=== PATIENT | female | born 1940 | race Caucasian/White ===

== ENCOUNTER 2023-05-07 13:01 | Outpatient (CLI) | payer MEDICARE, SELFPAY | END 2023-05-07 13:02 | disposition home or self-care (01) | PROVIDERS: PCP Family Medicine; Visit Provider Physician Assistant | DX: C34.90 Malignant neoplasm of unspecified part of unspecified bronchus or lung (principal); C79.31 Secondary malignant neoplasm of brain | CPT/HCPCS: 70553; A9575 ==

== ENCOUNTER 2023-06-02 13:28 | Emergency (ER) | payer MEDICARE, SELFPAY ==
[2023-06-02] VITALS (13 sets, daily range): BP systolic 112–148; BP diastolic 63–74; PULSE 76–100; RESP 24; TEMP 36.5; O2SAT 95–96; BMI 19.3
--- NOTE | 2023-06-02 13:47 | ED.GENADULT ---
HPI - General Adult General Chief complaint: Shortness of Breath/Dyspnea Stated complaint: Diff breathing, dehyd, cant eat, cancer pt Time Seen by Provider: 06/02/23 13:47 History of Present Illness HPI narrative: Patient presents to the emergency department complaining of shortness of breath. Patient has a plurex drain under left arm which was place . Patient finished cancer radiation on . Patient also states she has had increased thirst 82-year-old woman presenting to the emergency department with concern of increasing shortness of breath over last 24 hours. Does have a PleurX drain placed 05/14/2023 for recurrent pleural effusions. Had some surgical intervention prior to that. Underlying history of lung cancer with metastases to the brain. Had been doing well for a couple of years following chemotherapy and now with brain metastases and recurrent pleural effusion. She has been receiving radiation to her brain. Has not had a fever. She feels particularly fatigued. Also very thirsty. Has been drained of pleural fluid about 150 mL 3 times this last week; this would not be atypical. Apparently this drainage is painful. Related Data Previous Rx's Medication Instructions Recorded nirmatrelvir 150 mg-ritonavir 100 See Rx Instructions PO .COMPLEX 06/02/23 mg tablets in a dose pack #20 ea (Paxlovid) Allergies Allergy/AdvReac Type Severity Reaction Status Date / Time No Known Drug Allergies Allergy Verified 06/02/23 15:03 Review of Systems Status of ROS: Reports: 6 or more systems reviewed and unremarkable except as noted in History and below [facility] Social History Smoking Status: Never smoker Do you use any of these nicotine containing products: None Second hand tobacco smoke exposure: No How often do you have a drink containing alcohol: never AUDIT-C Alcohol total score: 0 Non-prescribed substance use: denies use service: No Exam Narrative: Exam Narrative: Pleasant. Hard of hearing. Appears fatigued. Mildly labored and mildly tachypneic. Answers questions easily though when speak louder. Seems uncomfortable, distracted. Oropharynx is quite dry. No evidence of thrush. Lungs with diminished breath sounds superiorly. No supraclavicular crepitus. Good breath sounds of lower lung marvin without crepitus. Heart in elevated to tachycardic rate in a regular rhythm. Abdomen is soft and nontender. Extremities well perfused without edema. Const: Vital Signs, click to edit/add: Vital Signs - 24 hr 06/02/23 13:33 06/02/23 14:54 06/02/23 15:00 Temperature 97.7 F Pulse Rate 76 78 Pulse Rate [Right Pulse Oximeter] 100 Respiratory Rate 24 Blood Pressure Blood Pressure [Ri ght Upper Arm] 112/65 Pulse Oximetry 95 95 95 Oxygen Delivery Me thod Room Air 06/02/23 15:01 06/02/23 15:30 06/02/23 15:32 Temperature Pulse Rate 77 78 78 Pulse Rate [Right Pulse Oximeter] Respiratory Rate Blood Pressure 139/67 138/63 Blood Pressure [Ri ght Upper Arm] Pulse Oximetry 96 96 95 Oxygen Delivery Me thod 06/02/23 15:33 06/02/23 16:00 06/02/23 16:02 Temperature Pulse Rate 86 80 79 Pulse Rate [Right Pulse Oximeter] Respiratory Rate Blood Pressure 148/70 H Blood Pressure [Ri ght Upper Arm] Pulse Oximetry 96 95 95 Oxygen Delivery Me thod 06/02/23 16:30 06/02/23 16:32 06/02/23 17:00 Temperature Pulse Rate 81 80 80 Pulse Rate [Right Pulse Oximeter] Respiratory Rate Blood Pressure 146/74 H Blood Pressure [Ri ght Upper Arm] Pulse Oximetry 96 96 96 Oxygen Delivery Me thod 06/02/23 17:02 Temperature Pulse Rate 81 Pulse Rate [Right Pulse Oximeter] Respiratory Rate Blood Pressure 146/72 H Blood Pressure [Ri ght Upper Arm] Pulse Oximetry 95 Oxygen Delivery Me thod Documenting provider has reviewed patient's vital signs: yes Course Vital Signs Vital signs: Initial Vital Signs Temperature 97.7 F 06/02/23 13:33 Temperature Source Temporal Artery Scan 06/02/23 13:33 Pulse Rate 100 06/02/23 13:33 Pulse Rhythm Regular 06/02/23 13:33 Pulse Strength 3+ Normal 06/02/23 13:33 Respiratory Rate 24 06/02/23 13:33 Blood Pressure 112/65 06/02/23 13:33 Blood Pressure Mean 80 06/02/23 13:33 Blood Pressure Position Sitting 06/02/23 13:33 Pulse Oximetry 95 06/02/23 13:33 Oxygen Delivery Method Room Air 06/02/23 13:33 Vital Signs Temperature 97.7 F 06/02/23 13:33 Pulse Rate 100 06/02/23 13:33 Respiratory Rate 24 06/02/23 13:33 Blood Pressure 112/65 06/02/23 13:33 Pulse Oximetry 95 06/02/23 13:33 Oxygen Delivery Method Room Air 06/02/23 13:33 Temperature 97.7 F 06/02/23 13:33 Pulse Rate 81 06/02/23 17:02 Respiratory Rate 24 06/02/23 13:33 Blood Pressure 146/72 H 06/02/23 17:02 Pulse Oximetry 95 06/02/23 17:02 Oxygen Delivery Method Room Air 06/02/23 13:33 Medications Administered Medications: Discontinued Medications Generic Name Dose Route Start Last Admin Trade Name Freq PRN Reason Stop Dose Admin Sodium Chloride 1,000 mls @ 1,000 mls/hr 06/02/23 14:06 06/02/23 15:35 0.9 % Sodium Chloride 1000 Ml IV 06/02/23 15:05 Infused .Q1H ONE Infusion Medical Decision Making MDM Narrative Medical decision making narrative: Certainly could be rapid accumulation of this pleural effusion. May have a pneumothorax or possibly pneumonia. With further sources of infection as well. Does not meet sepsis criteria at this point. Influenza remains in differential as does pulmonary embolus. More significant dehydration could contribute to this sense of dyspnea. She is satting 95% on room air. Heart failure possibly as well Chest x-ray reviewed by me looks to show some diffuse congestion in the lungs and small to moderate left-sided pleural effusion. Drain noted. Radiology over-read as below Study:?XRay-Chest PORTABLE-06/02/2023 2:21:35 PM Ordering Physician:MARTINEZ Final Report: Indication: History of pleural effusion, increased dyspnea Technique: Single frontal view of the chest Comparison: None Findings/impression : No cardiomegaly. Mild pulmonary vascular congestion. Small to moderate left-sided pleural effusion with chest tube coiled over the left lower lung zone. Faint diffuse airspace opacities involving predominantly the right mid to lower lung zone, may represent pulmonary edema versus an acute infectious/inflammatory process in the appropriate clinical context. No displaced fractures. White count was noted with some lymphocytic suppression. Ultimately was positive for COVID. I think this is most consistent with presentation. Following 1 L of fluid resuscitation clearly has much more energy. Is engaged. Is anxious to leave the emergency department. No longer tachycardic. Oxygenating still at 95% on room. Will be ordering for Paxlovid. Did ask pharmacy to run medications for interactions. Dosing will be adjusted for renal function. Apparently recently had a creatinine of 2 according to her . GFR is just under 30 and she might not be recommended for Paxlovid at all but I think in this patient it would be more important to treat for COVID. Did discuss this case with [facility] as requested by patient and Oncology. See patient discharge plan for further discussion Lab Data Lab results reviewed: Yes I reviewed the patient's lab results Labs: Lab Results 06/02/23 06/02/23 06/02/23 Range/Units 14:00 14:07 14:28 WBC 6.49 (4.50-11.00) K/uL RBC 4.17 (4.00-5.20) m/uL Hgb 11.9 L (12.0-16.0) gm/dL Hct 37.6 (33.0-51.0) % MCV 90 (80-100) fL MCH 29 (26-34) pg MCHC 32 (32-36) gm/dL RDW Coeff of David 16.8 H (11.5-15.5) % Plt Count 215 (140-440) K/uL Neut % (Auto) 81.0 H (42.0-72.0) % Lymph % (Auto) 11.4 L (20-44) % [place] % (Auto) 5.9 (0.0-11.0) % Eos % (Auto) 0.9 (0.0-7.0) % Baso % (Auto) 0.5 (0.0-3.0) % Neut # (Auto) 5.30 (1.7-7.0) K/uL Lymph # (Auto) 0.70 L (0.90-2.90) K/uL [place] # (Auto) 0.40 (0.00-0.90) K/UL Eos # (Auto) 0.06 (0.00-0.50) K/uL Baso # (Auto) 0.03 (0.00-0.30) K/uL Abs Immat Gran (auto) 0.02 (0.00-0.30) K/uL Imm/Tot Granulo (auto) 0.3 % Sodium 140 (135-149) mmol/L Potassium 3.6 (3.6-5.1) mmol/L Chloride 113 (96-114) mmol/L Carbon Dioxide 21 (20-32) mmol/L Anion Gap 6 L (7-15) mEq/L BUN 44 H (7-30) mg/dL Creatinine 1.3 (0.5-1.5) mg/dL Estimated Creat Clear 29.39 Estimated GFR 41 ml/min Glucose 152 H (60-115) mg/dL Lactate 1.5 (0.5-1.9) mmol/L Calcium 9.3 (8.4-10.6) mg/dL Magnesium 2.3 (1.5-2.6) mg/dL Total Bilirubin 0.5 (0.1-1.5) mg/dL Direct Bilirubin 0.5 (0.0-0.5) mg/dL AST 29 (12-35) U/L ALT 15 (4-35) U/L Alkaline Phosphatase 90 (40-150) U/L Troponin I < 0.01 L (0.01-0.04) ng/mL C-Reactive Protein 0.9 (0.5-1.0) mg/dL NT-Pro-B Natriuret Pep 798 pg/mL Total Protein 6.4 (6.0-8.3) g/dL Albumin 3.4 (3.3-5.0) g/dL Procalcitonin 0.09 (<0.50) ng/mL SARS-CoV-2 (PCR) POSITIVE SARS-CoV-2 A (Negative) Influenza Type A (PCR) Negative PCR FLU A (Negative) Influenza Type B (PCR) Negative PCR FLU B (Negative) RSV (PCR) Negative PCR RSV (Negative) Lab Acknowledgement POC Troponin I 0.01 (0.01-0.04) ng/ml 06/02/23 Range/Units 16:53 WBC (4.50-11.00) K/uL RBC (4.00-5.20) m/uL Hgb (12.0-16.0) gm/dL Hct (33.0-51.0) % MCV (80-100) fL MCH (26-34) pg MCHC (32-36) gm/dL RDW Coeff of David (11.5-15.5) % Plt Count (140-440) K/uL Neut % (Auto) (42.0-72.0) % Lymph % (Auto) (20-44) % [place] % (Auto) (0.0-11.0) % Eos % (Auto) (0.0-7.0) % Baso % (Auto) (0.0-3.0) % Neut # (Auto) (1.7-7.0) K/uL Lymph # (Auto) (0.90-2.90) K/uL [place] # (Auto) (0.00-0.90) K/UL Eos # (Auto) (0.00-0.50) K/uL Baso # (Auto) (0.00-0.30) K/uL Abs Immat Gran (auto) (0.00-0.30) K/uL Imm/Tot Granulo (auto) % Sodium (135-149) mmol/L Potassium (3.6-5.1) mmol/L Chloride (96-114) mmol/L Carbon Dioxide (20-32) mmol/L Anion Gap (7-15) mEq/L BUN (7-30) mg/dL Creatinine (0.5-1.5) mg/dL Estimated Creat Clear Estimated GFR ml/min Glucose (60-115) mg/dL Lactate (0.5-1.9) mmol/L Calcium (8.4-10.6) mg/dL Magnesium (1.5-2.6) mg/dL Total Bilirubin (0.1-1.5) mg/dL Direct Bilirubin (0.0-0.5) mg/dL AST (12-35) U/L ALT (4-35) U/L Alkaline Phosphatase (40-150) U/L Troponin I (0.01-0.04) ng/mL C-Reactive Protein (0.5-1.0) mg/dL NT-Pro-B Natriuret Pep pg/mL Total Protein (6.0-8.3) g/dL Albumin (3.3-5.0) g/dL Procalcitonin (<0.50) ng/mL SARS-CoV-2 (PCR) (Negative) Influenza Type A (PCR) (Negative) Influenza Type B (PCR) (Negative) RSV (PCR) (Negative) Lab Acknowledgement Test Added POC Troponin I (0.01-0.04) ng/ml ECG Data Attestation: I personally reviewed and interpreted this ECG as follows: (Normal sinus rhythm at a rate of 83. Without acute ischemic changes) Discharge Plan Discharge Clinical Impression: COVID-19, Pleural effusion, Dehydration Patient Disposition: Home w/ Parent or Adult Condition: Improved Additional Instructions: Do focus on hydration. Might want to supplement with electrolyte drinks like reconstituted Powerade or Gatorade. Paxlovid sent to [facility] pharmacy. Continue to take your Eliquis as dosed. Hold atorvastatin for 8 days Wait on starting your Gefitinib. I think you should be able to wait until scheduled fluid removal on Friday. If you are finding yourself increasingly short of breath, check oxygen saturation and if persistently 90% or less, would return for evaluation. Of course be seen for fever. Since your kidneys have been under stress lately, I did decrease your dosing of Paxlovid a little bit. I would follow up in about 8-10 days to recheck your kidney function Prescriptions: New Paxlovid 150-100 mg tablets,dose pack See Rx Instructions .ROUTE .COMPLEX Qty: 20 0RF Rx Instructions: orally per package directions Follow Up/Referrals: ANGELLA GUTIERREZ [Primary Care Provider] - Stand Alone Forms: OrderWithMe Info Instructions
--- NOTE | 2023-06-02 14:06 | XR_ITS ---
Patient: JAQUI COLORADO Facility:?[facility] Patient ID:?[id number] Site Patient ID:?[id number]. Site :?[id number] Study:?XRay-Chest PORTABLE-06/02/2023 2:21:35 PM Ordering Physician:MARTINEZ Final Report: Indication: History of pleural effusion, increased dyspnea Technique: Single frontal view of the chest Comparison: None Findings/impression : No cardiomegaly. Mild pulmonary vascular congestion. Small to moderate left-sided pleural effusion with chest tube coiled over the left lower lung zone. Faint diffuse airspace opacities involving predominantly the right mid to lower lung zone, may represent pulmonary edema versus an acute infectious/inflammatory process in the appropriate clinical context. No displaced fractures. Dictated by Dewayne Simmons MD @ 06/02/2023 2:42:04 PM Signed by:?Dewayne Simmons MD @06/02/2023 2:42:04 PM
[2023-06-02] MEDS: 0.9 % SODIUM CHLORIDE 1000 ml 1,000 ML IV (14:32)
[2023-06-02 14:37] LABS: Lactate* 1.5 mmol/L (0.5-1.9)
[2023-06-02 14:46] LABS: Troponin, Point-of-Care* 0.01 ng/ml (0.01-0.04)
[2023-06-02 14:47] LABS: Eosinophils Percent Auto 0.9 % (0.0-7.0); Hematocrit 37.6 % (33.0-51.0); Hemoglobin* 11.9 gm/dL (12.0-16.0); Lymphocytes Percent Auto 11.4 % (20-44); Mean Corpuscular HGB Conc 32 gm/dL (32-36); Mean Corpuscular Hemoglobin 29 pg (26-34); Mean Corpuscular Volume 90 fL (80-100); Monocytes Percent Auto 5.9 % (0.0-11.0); Platelet Count* 215 K/uL (140-440); RDW Coefficient of Variation % 16.8 % (11.5-15.5); Red Blood Count 4.17 m/uL (4.00-5.20); White Blood Count* 6.49 K/uL (4.50-11.00)
[2023-06-02 14:48] LABS: Basophils Absolute Auto 0.03 K/uL (0.00-0.30); Basophils Percent Auto 0.5 % (0.0-3.0); Eosinophils Absolute Auto 0.06 K/uL (0.00-0.50); Immature Granulocytes Abs Auto 0.02 K/uL (0.00-0.30); Immature Granulocytes Pct Auto 0.3 %
[2023-06-02 14:49] LABS: Slide Review Reflex No
[2023-06-02 14:49] LABS: PCR FLU A Negative PCR FLU A (Negative); PCR FLU B Negative PCR FLU B (Negative); PCR RSV Negative PCR RSV (Negative); SARS PCR* POSITIVE SARS-CoV-2 (Negative)
[2023-06-02 14:56] LABS: Chloride* 113 mmol/L (96-114); Potassium* 3.6 mmol/L (3.6-5.1); Sodium* 140 mmol/L (135-149)
[2023-06-02 14:58] LABS: Creatinine* 1.3 mg/dL (0.5-1.5); Est. Creatinine Clearance* 29.39; Estimated Glomerular Filt Rate 41 ml/min
[2023-06-02 14:59] LABS: Anion Gap 6 mEq/L (7-15); Blood Urea Nitrogen* 44 mg/dL (7-30); Carbon Dioxide* 21 mmol/L (20-32)
[2023-06-02 15:00] LABS: Calcium* 9.3 mg/dL (8.4-10.6); Glucose* 152 mg/dL (60-115); Magnesium* 2.3 mg/dL (1.5-2.6)
[2023-06-02 15:02] LABS: C Reactive Protein* 0.9 mg/dL (0.5-1.0)
[2023-06-02 15:17] LABS: Procalcitonin* 0.09 ng/mL (<0.50)
[2023-06-02 15:26] LABS: NT Pro B Type NatriureticPept* 798 pg/mL; Troponin I* < 0.01 ng/mL (0.01-0.04)
[2023-06-02 17:05] LABS: Albumin* 3.4 g/dL (3.3-5.0)
[2023-06-02 17:08] LABS: Alanine Aminotransferase* 15 U/L (4-35); Alkaline Phosphatase* 90 U/L (40-150); Aspartate Amino Transferase* 29 U/L (12-35); Bilirubin Direct* 0.5 mg/dL (0.0-0.5); Bilirubin Total* 0.5 mg/dL (0.1-1.5); Total Protein* 6.4 g/dL (6.0-8.3)
== END 2023-06-02 18:07 | disposition home or self-care (01) ==
PROVIDERS: Emergency Provider Family Medicine; PCP Family Medicine
DX: U07.1 COVID-19 (principal); J90 Pleural effusion, not elsewhere classified
CPT/HCPCS: 36415; 71045; 80048; 80076; 81001; 83605; 83735; 83880; 84145; 84484; 85025; 86140; 87040; 87631; 93005; 99284; J7030

== ENCOUNTER 2023-06-07 14:48 | Emergency (ER) | payer MEDICARE, SELFPAY ==
[2023-06-07 15:00] VITALS: BP 109/60; PULSE 99; RESP 18; TEMP 36.8; O2SAT 96; BMI 18.8
--- NOTE | 2023-06-07 15:19 | ED_ITS ---
HPI - Weakness General Time Seen by Provider: 15:19 Date Seen: 06/07/23 Chief complaint: Weakness Stated complaint: weakness, trouble walking Time Seen by Provider: 06/07/23 15:10 Source: patient and RN notes reviewed Mode of arrival: ambulatory Limitations: no limitations History of Present Illness HPI Narrative: This 82-year-old female is ambulatory into the ER accompanied by her significant other. They are concerned about increasing weakness in the setting of COVID. She is not really eating or drinking, complaining of nausea. She has had some recent emesis after attempting to drink. She denies any current fevers or chills, no abdominal pain. She does have underlying lung cancer with brain metastases, did have brain radiation on May 26 per report. She also has stage 4 kidney disease. She was initiated on Paxlovid on June 01 for COVID. She only has 1 dose of pills left to take. She does have a drainage catheter in the left pleural space for recurrent pleural effusion. She is feeling increasingly short of breath and weak. They note her O2 sats were 95% at home but when they got her up to ambulate, she went down to 84%. She denies any active chest pain. She has been getting some pinching sensation from the catheter in the left chest wall, there is no new chest symptoms however as far as pain. They are wondering if she is going to get some IV fluids. She is anticoagulated with Eliquis. MD Complaint: generalized weakness Related Data Home Medications Medication Instructions Recorded Confirmed apixaban 2.5 mg tablet (Eliquis) 2.5 mg PO BID 06/07/23 06/07/23 gabapentin 100 mg capsule 100 mg PO QPM 06/07/23 06/07/23 levothyroxine 50 mcg tablet 50 mcg PO DAILY 06/07/23 06/07/23 losartan 25 mg tablet 25 mg PO DAILY 06/07/23 06/07/23 memantine 10 mg tablet mg 06/07/23 sertraline 100 mg tablet 100 mg PO DAILY 06/07/23 06/07/23 Previous Rx's Medication Instructions Recorded nirmatrelvir 150 mg-ritonavir 100 See Rx Instructions PO .COMPLEX 06/02/23 mg tablets in a dose pack #20 ea (Paxlovid) Allergies Allergy/AdvReac Type Severity Reaction Status Date / Time lisinopril Allergy Verified 06/07/23 15:06 Review of Systems Status of ROS: Reports: 6 or more systems reviewed and unremarkable except as noted in History and below [facility] Social History Smoking Status: Never smoker Do you use any of these nicotine containing products: None Second hand tobacco smoke exposure: No How often do you have a drink containing alcohol: never AUDIT-C Alcohol total score: 0 Non-prescribed substance use: denies use service: No Exam Const: Vital Signs, click to edit/add: Vital Signs - 24 hr 06/07/23 15:00 06/07/23 15:29 06/07/23 16:20 Temperature 98.2 F Pulse Rate [Right Pulse Oximeter] 99 86 Respiratory Rate 18 Blood Pressure [Ri ght Upper Arm] 109/60 117/67 Pulse Oximetry 96 97 97 Oxygen Delivery Me thod Room Air Room Air 82-year-old female is alert come interac tive, sitting the bed and exam room to. She is hard of hearing. Sclera clear, pupils are equal round, conjugate gaze. Symmetrical facial function. IA do see a good waveform as I put her on pulse oximetry when I am in with her, 97% at rest. I did ambulate her on the pulse oximeter within her room, maybe just about 20 ft, her oximeter still has excellent reading and she does not become hypoxic for me but she is excessively tachypneic. Cannot even speak she becomes so tachypneic. Baseline, lungs are clear, maybe diminished breath sounds left base but overall hear no wheezing or crackles. CV slightly fast but regular, no murmur, normal S1-S2, no S3-S4. Left pleural catheter in place, bandaging appears clean and dry. Abdomen is soft, no rebound or guarding, do not appreciate any masses. She has no lower extremity edema. She is able to get up off the bed with my assistance but does ambulate slowly on her own in the room. Documenting provider has reviewed patient's vital signs: yes Course Course ED Course: This 82-year-old female is complaining of increasing shortness of breath in set ting of COVID, lung cancer, chronic anticoagulation with apixaban. This could be multifactorial with post oral effusion, infectious changes from COVID-19. Will get EKG and troponin to consider cardiac manifestations. Will also recheck her electrolytes. She does have stage 4 chronic kidney disease and has been on Paxlovid. Will give her small fluid bolus of 500 mL. It is doubtful that this is thromboembolic disease given her chronic anticoagulation. She is not currently hypoxic. Will have to see what her labs and chest x-ray show. If they do not feel that she is safe for able to return home, may need to discuss this further. Reevaluation(s) Time of Reevaluation #1: 16:58 Reevaluation #1: Have reviewed with patient and her significant other that the labs are reassuring, chest x-ray showing no evidence of any concerning change. We will give a full L of IV fluids. We did discuss that the pulse oximeter that they have at home, there is no waveform on it. We did review that sometimes there can be difficulty assessing the accuracy without being able to see a waveform. We will ambulate her after she is done with her fluids with our pulse oximeter with a waveform to ensure stability. I do not doubt with her lung cancer, pleural effusion and current COVID that she might be feeling short of breath but she is not becoming hypoxic. At this current time, have no clear indication for hospitalization. We did review that her COVID antigen is negative at this time. Time of Reevaluation #2: 18:53 Reevaluation #2: Nursing staff ambulated patient in the room, oximetry actually went up to 98, 99%. Patient was able to ambulate on her own. She has completed her fluids. We did discuss that she certainly is more tachypneic with activity but is not becoming hypoxic. They wondered about home oxygen, reviewed with them that it would absolutely not be paid for, she does not qualify for it. She has to be hypoxic. We discussed slowly increasing her activity, rest when she is feeling short of breath. Idea should be relative rest, work for goal of slowly increasing slow walks daily, do short small intervals multiple times a day. Again, when she starts feeling short of breath, she should slow down and rest and recover. We discussed signs and symptoms for worsening, did discuss rebound after treatment for COVID. She has her significant other who will be readily available to help her at home. Vital Signs Vital signs: Initial Vital Signs Temperature 98.2 F 06/07/23 15:00 Temperature Source Temporal Artery Scan 06/07/23 15:00 Pulse Rate 99 06/07/23 15:00 Respiratory Rate 18 06/07/23 15:00 Blood Pressure 109/60 06/07/23 15:00 Blood Pressure Mean 76 06/07/23 15:00 Blood Pressure Position Sitting 06/07/23 15:00 Pulse Oximetry 96 06/07/23 15:00 Oxygen Delivery Method Room Air 06/07/23 15:00 Vital Signs Temperature 98.2 F 06/07/23 15:00 Pulse Rate 99 06/07/23 15:00 Respiratory Rate 18 06/07/23 15:00 Blood Pressure 109/60 06/07/23 15:00 Pulse Oximetry 96 06/07/23 15:00 Oxygen Delivery Method Room Air 06/07/23 15:00 Temperature 98.2 F 06/07/23 15:00 Pulse Rate 86 06/07/23 16:20 Respiratory Rate 18 06/07/23 15:00 Blood Pressure 117/67 06/07/23 16:20 Pulse Oximetry 97 06/07/23 16:20 Oxygen Delivery Method Room Air 06/07/23 16:20 Medications Administered Medications: Discontinued Medications Generic Name Dose Route Start Last Admin Trade Name Freq PRN Reason Stop Dose Admin Sodium Chloride 500 mls @ 500 mls/hr 06/07/23 15:29 06/07/23 16:15 0.9 % Sodium Chloride 500 Ml IV 06/07/23 16:28 500 mls/hr .Q1H ONE Administration Sodium Chloride 500 mls @ 500 mls/hr 06/07/23 17:05 06/07/23 17:16 0.9 % Sodium Chloride 500 Ml IV 06/07/23 18:04 500 mls/hr .Q1H ONE Administration MDM - Weakness Lab Data Attestation: I reviewed the patient's lab results. Labs: Lab Results 06/07/23 Range/Units 15:49 WBC 6.00 (4.50-11.00) K/uL RBC 3.78 L (4.00-5.20) m/uL Hgb 10.9 L (12.0-16.0) gm/dL Hct 33.8 (33.0-51.0) % MCV 89 (80-100) fL MCH 29 (26-34) pg MCHC 32 (32-36) gm/dL RDW Coeff of David 17.0 H (11.5-15.5) % Plt Count 192 (140-440) K/uL Neut % (Auto) 76.3 H (42.0-72.0) % Lymph % (Auto) 15.5 L (20-44) % [place] % (Auto) 7.2 (0.0-11.0) % Eos % (Auto) 0.8 (0.0-7.0) % Baso % (Auto) 0.2 (0.0-3.0) % Neut # (Auto) 4.60 (1.7-7.0) K/uL Lymph # (Auto) 0.90 (0.90-2.90) K/uL [place] # (Auto) 0.40 (0.00-0.90) K/UL Eos # (Auto) 0.05 (0.00-0.50) K/uL Baso # (Auto) 0.01 (0.00-0.30) K/uL Abs Immat Gran (auto) 0.00 (0.00-0.30) K/uL Imm/Tot Granulo (auto) 0.0 % VBG pH 7.399 (7.32-7.43) VBG pCO2 38 L (40-50) mmHG VBG pO2 44.5 (25-47) mmHG VBG HCO3 23 (21-28) mmol/L Sodium 138 (135-149) mmol/L Potassium 3.7 (3.6-5.1) mmol/L Chloride 111 (96-114) mmol/L Carbon Dioxide 21 (20-32) mmol/L Anion Gap 6 L (7-15) mEq/L BUN 31 H (7-30) mg/dL Creatinine 1.3 (0.5-1.5) mg/dL Estimated Creat Clear 28.67 Estimated GFR 41 ml/min Glucose 117 H (60-115) mg/dL Lactate 1.2 (0.5-1.9) mmol/L Calcium 9.1 (8.4-10.6) mg/dL Total Bilirubin 0.3 (0.1-1.5) mg/dL AST 24 (12-35) U/L ALT 12 (4-35) U/L Alkaline Phosphatase 83 (40-150) U/L Troponin I < 0.01 L (0.01-0.04) ng/mL C-Reactive Protein 2.0 H (0.5-1.0) mg/dL Total Protein 5.4 L (6.0-8.3) g/dL Albumin 3.1 L (3.3-5.0) g/dL SARS-CoV-2 Ag (Rapid) Negative (Negative) Imaging Data Chest x-ray: Attestation: I have reviewed the pertinent imaging results. Radiologist's impression: Patient: JAQUI COLORADO Facility:?[facility] Patient ID:?[id number] Site Patient ID:?[id number]. Site :?[id number] Study:?XRay Chest -06/07/2023 4:09:44 PM Ordering Physician:ERROL MERCADO Final Report: INDICATION: Worsening shortness of breath, history of lung cancer, covid. TECHNIQUE: Chest 1 view. COMPARISON: Chest x-ray 06/02/2023 FINDINGS: The heart is normal in size. The pulmonary vasculature is within normal limits. Stable right-sided interstitial opacities. Persistent left pleural effusion with catheter in place. Bones are unremarkable. Postsurgical changes of the left lung. IMPRESSION: Stable chest. Dictated by Shantell Jaimes MD @ 06/07/2023 4:33:18 PM Dictated by: Shantell Jaimes MD @ 06/07/2023 16:34:47 (Electronic Signature) ECG Data Attestation: I personally reviewed and interpreted this ECG as follows: (Normal sinus rhythm, 82 beats per minute. No infarct or ischemic change noted. QT cor rected 467 milliseconds.) ECG interpretation date: 06/07/23 ECG interpretation time: 16:57 Discharge Plan Discharge Clinical Impression: COVID-19, Weakness Patient Disposition: Home, Self-Care Condition: Stable Instructions: COVID-19 (Coronavirus Disease 2019) (ED), How to Recover from COVID-19 at Home (ED) Additional Instructions: Do slow small walks, short walks, rest and recover when you are feeling short of breath. Try to slowly increase her activity level over time. Complete the Paxlovid. Continue to follow up with Oncology. Review handout, if you have further concerns or feel you are worsening, please seek re-evaluation. Activity Level: Activity as Tolerated Discharge Diet: Regular Prescriptions: No Action Paxlovid 150-100 mg tablets,dose pack See Rx Instructions .ROUTE .COMPLEX Qty: 20 0RF Rx Instructions: orally per package directions sertraline 100 mg tablet 100 mg PO DAILY levothyroxine 50 mcg tablet 50 mcg PO DAILY losartan 25 mg tablet 25 mg PO DAILY gabapentin 100 mg capsule 100 mg PO QPM Eliquis 2.5 mg tablet 2.5 mg PO BID memantine 10 mg tablet Patient Comments: PLEASE SEE ATTACHED FOR DETAILED DIRECTIONS Follow Up/Referrals: ANGELLA GUTIERREZ [Primary Care Provider] - Stand Alone Forms: enStageth Info Instructions
[2023-06-07 15:29] VITALS: O2SAT 97
--- NOTE | 2023-06-07 15:29 | XR_ITS ---
Patient: JAQUI COLORADO Facility:?[facility] Patient ID:?[id number] Site Patient ID:?[id number]. Site :?[id number] Study:?XRay-Chest -06/07/2023 4:09:44 PM Ordering Physician:ERROL MERCADO Final Report: INDICATION: Worsening shortness of breath, history of lung cancer, covid. TECHNIQUE: Chest 1 view. COMPARISON: Chest x-ray 06/02/2023 FINDINGS: The heart is normal in size. The pulmonary vasculature is within normal limits. Stable right-sided interstitial opacities. Persistent left pleural effusion with catheter in place. Bones are unremarkable. Postsurgical changes of the left lung. IMPRESSION: Stable chest. Dictated by Shantell Jaimes MD @ 06/07/2023 4:33:18 PM Dictated by: Shantell Jaimes MD @ 06/07/2023 16:34:47 Signed by:?Shantell Jaimes MD @06/07/2023 4:34:47 PM (Electronic Signature)
[2023-06-07 15:53] LABS: HCO3 VBG 23 mmol/L (21-28); Lactate* 1.2 mmol/L (0.5-1.9); PCO2 VBG 38 mmHG (40-50); PO2 VBG 44.5 mmHG (25-47); pH VBG 7.399 (7.32-7.43)
[2023-06-07 15:58] LABS: Basophils Absolute Auto 0.01 K/uL (0.00-0.30); Basophils Percent Auto 0.2 % (0.0-3.0); Eosinophils Absolute Auto 0.05 K/uL (0.00-0.50); Eosinophils Percent Auto 0.8 % (0.0-7.0); Hematocrit 33.8 % (33.0-51.0); Hemoglobin* 10.9 gm/dL (12.0-16.0); Lymphocytes Percent Auto 15.5 % (20-44); Mean Corpuscular HGB Conc 32 gm/dL (32-36); Mean Corpuscular Hemoglobin 29 pg (26-34); Mean Corpuscular Volume 89 fL (80-100); Monocytes Percent Auto 7.2 % (0.0-11.0); Neutrophils Percent Auto 76.3 % (42.0-72.0); Platelet Count* 192 K/uL (140-440); Red Blood Count 3.78 m/uL (4.00-5.20)
[2023-06-07 15:59] LABS: Slide Review Reflex No
[2023-06-07 16:11] LABS: SARS Antigen* Negative (Negative)
[2023-06-07 16:12] LABS: Chloride* 111 mmol/L (96-114)
[2023-06-07 16:13] LABS: Albumin* 3.1 g/dL (3.3-5.0); Potassium* 3.7 mmol/L (3.6-5.1); Sodium* 138 mmol/L (135-149)
[2023-06-07] MEDS: 0.9 % SODIUM CHLORIDE 500 ML 500 ML IV ×2 (16:15→17:16)
[2023-06-07 16:16] LABS: Alanine Aminotransferase* 12 U/L (4-35); Alkaline Phosphatase* 83 U/L (40-150); Anion Gap 6 mEq/L (7-15); Aspartate Amino Transferase* 24 U/L (12-35); Bilirubin Total* 0.3 mg/dL (0.1-1.5); Blood Urea Nitrogen* 31 mg/dL (7-30); Calcium* 9.1 mg/dL (8.4-10.6); Carbon Dioxide* 21 mmol/L (20-32); Creatinine* 1.3 mg/dL (0.5-1.5); Est. Creatinine Clearance* 28.67; Estimated Glomerular Filt Rate 41 ml/min; Glucose* 117 mg/dL (60-115); Total Protein* 5.4 g/dL (6.0-8.3)
[2023-06-07 16:20] VITALS: BP 117/67; PULSE 86; O2SAT 97
[2023-06-07 16:28] LABS: Troponin I* < 0.01 ng/mL (0.01-0.04)
[2023-06-07 19:15] VITALS: BP 137/70; PULSE 85; RESP 20; O2SAT 96
== END 2023-06-07 19:30 | disposition home or self-care (01) ==
PROVIDERS: Emergency Provider Family Medicine; PCP Family Medicine
DX: U07.1 COVID-19 (principal); R53.1 Weakness
CPT/HCPCS: 36415; 71045; 80053; 82803; 83605; 84484; 85025; 86140; 87426; 93005; 94761; 99284; 99285; J7030

== ENCOUNTER 2023-07-17 16:47 | Emergency (ER) | payer MEDICARE, SELFPAY ==
[2023-07-17] VITALS (29 sets, daily range): BP systolic 79–148; BP diastolic 51–83; PULSE 71–99; RESP 17; TEMP 36.4; O2SAT 78–100; BMI 18.6
--- NOTE | 2023-07-17 17:25 | XR_ITS ---
Patient: JAQUI COLORADO Facility:?[facility] Patient ID:?[id number] Site Patient ID:?[id number] Site :?[id number] Study:?XRay-Chest 2 VIEW-07/17/2023 6:10:43 PM Ordering Physician:?DR. HARRINGTON Final Report: INDICATION: Chest pain. TECHNIQUE: Chest 2 view(s) COMPARISON: Chest radiograph dated 06/07/2023. FINDINGS: Cardiomediastinal silhouette is partially obscured, no significant cardiomegaly. Stable pulmonary vasculature. Surgical clips at the left superior hilum noted. Persistent opacification of the left lower lung, with streaky opacities. Slight interval decrease in right interstitial opacities. No pneumothorax. Extensive multilevel degenerative changes of the visualized spine. IMPRESSION: 1. Persistent opacification of the left lower lung, increased since prior study, may reflect worsening pleural effusion. Underlying mass/pneumonia not excluded. 2. Streaky opacities in the left mid lung, may reflect atelectasis. 3. Slight interval decrease in right interstitial opacities since prior study. Dictated by Best Mendez MD @ 07/17/2023 7:15:01 PM Signed by:?Best Mendez MD @07/17/2023 7:15:01 PM (Electronic Signature)
[2023-07-17] MEDS: 0.9 % SODIUM CHLORIDE 1000 ml 1,000 ML IV (17:45)
[2023-07-17 17:50] LABS: Basophils Absolute Auto 0.02 K/uL (0.00-0.30); Basophils Percent Auto 0.4 % (0.0-3.0); Hematocrit 33.9 % (33.0-51.0); Hemoglobin* 10.8 gm/dL (12.0-16.0); Immature Granulocytes Abs Auto 0.01 K/uL (0.00-0.30); Immature Granulocytes Pct Auto 0.2 %; Lactate* 1.2 mmol/L (0.5-1.9); Lymphocytes Percent Auto 17.9 % (20-44); Mean Corpuscular HGB Conc 32 gm/dL (32-36); Mean Corpuscular Hemoglobin 30 pg (26-34); Mean Corpuscular Volume 93 fL (80-100); Monocytes Percent Auto 5.2 % (0.0-11.0); Neutrophils Percent Auto 76.3 % (42.0-72.0); Platelet Count* 184 K/uL (140-440); RDW Coefficient of Variation % 16.8 % (11.5-15.5); Red Blood Count 3.64 m/uL (4.00-5.20); White Blood Count* 4.96 K/uL (4.50-11.00)
[2023-07-17 18:00] LABS: Slide Review Reflex No
[2023-07-17 18:08] LABS: Chloride* 109 mmol/L (96-114); Potassium* 3.4 mmol/L (3.6-5.1); Sodium* 137 mmol/L (135-149)
[2023-07-17 18:10] LABS: Creatinine* 1.5 mg/dL (0.5-1.5); Est. Creatinine Clearance* 23.81; Estimated Glomerular Filt Rate 35 ml/min
[2023-07-17 18:11] LABS: Anion Gap 4 mEq/L (7-15); Blood Urea Nitrogen* 42 mg/dL (7-30); Carbon Dioxide* 24 mmol/L (20-32); Glucose* 93 mg/dL (60-115)
[2023-07-17 18:12] LABS: Calcium* 8.3 mg/dL (8.4-10.6)
[2023-07-17 18:28] LABS: Procalcitonin* 0.06 ng/mL (<0.50)
[2023-07-17 18:30] LABS: Fecal Occult Blood* Negative (Negative)
[2023-07-17 18:40] LABS: C Reactive Protein* < 0.5 mg/dL (0.5-1.0)
--- NOTE | 2023-07-17 19:23 | ED_ITS ---
HPI - Weakness General Date Seen: 07/17/23 Chief complaint: Weakness Stated complaint: Shortness of breath, diarrhea Time Seen by Provider: 07/17/23 16:53 Source: patient and family Mode of arrival: ambulatory Limitations: no limitations History of Present Illness HPI Narrative: Pt is a lung cancer pt that receives care at [facility]. Pt states she had been recently constipated and all of a sudden she started having diarrhea and took some Imodium to help her stop the onslaught of stool. Pt states the Imodium helped for a short time and she has been having more diarrhea along with shortness of breath this afternoon. thinks the stool appears dark and brought her in for the dark stool.Patient is a delightful lady who presents here with her , ambulatory for evaluation of some mild shortness of breath, and feelings that she may have constipation. She notes that she feels otherwise okay, the only pain she has in her chest is where they did a removal some fluid, with sounds to be for a pleural effusion on the left side. She denies any swelling of her legs, she denies any fevers chills or sweats, she has no appetite, but she tells me that is normal for her, her is very concerned that she has dark stools and she may be bleeding. Denies any abdominal pain at all. Related Data Home Medications Medication Instructions Recorded Confirmed apixaban 2.5 mg tablet (Eliquis) 2.5 mg PO BID 06/07/23 06/07/23 gabapentin 100 mg capsule 100 mg PO QPM 06/07/23 06/07/23 levothyroxine 50 mcg tablet 50 mcg PO DAILY 06/07/23 06/07/23 losartan 25 mg tablet 25 mg PO DAILY 06/07/23 06/07/23 memantine 10 mg tablet mg 06/07/23 sertraline 100 mg tablet 100 mg PO DAILY 06/07/23 06/07/23 Previous Rx's Medication Instructions Recorded nirmatrelvir 150 mg-ritonavir 100 See Rx Instructions PO .COMPLEX 06/02/23 mg tablets in a dose pack #20 ea (Paxlovid) Allergies Allergy/AdvReac Type Severity Reaction Status Date / Time lisinopril Allergy Verified 06/07/23 15:06 Review of Systems Status of ROS: Reports: 10 or more systems reviewed and unremarkable except as noted in History and below PFSH PFSH Social History Smoking Status: Never smoker Do you use any of these nicotine containing products: None Second hand tobacco smoke exposure: No How often do you have a drink containing alcohol: never How often do you have six or more drinks on one occasion: Never AUDIT-C Alcohol total score: 0 Non-prescribed substance use: denies use service: No Exam Narrative: Exam Narrative: On examination in room 3 she is very slight. But alert oriented a little bit pale looking, her initial BP was very low, I question whether he has this placed exactly right. Follow-up BP's are much improved. Pupils are equal round reactive to light there is some sallow miss, but otherwise normal TMs are normal her neck is supple, very she is thin, air entry is decreased on the left side, percussive dullness is noted, heart sounds are normal, she has good air entry otherwise throughout, with no wheezing crackles noted her abdomen is entirely soft there is no guarding no organomegaly. Bowel sounds are normal she moves all extremities independently and well, with no edema, neurologically intact. Const: Vital Signs, click to edit/add: Vital Signs - 24 hr 07/17/23 16:55 07/17/23 17:24 07/17/23 17:55 Temperature 97.5 F L Pulse Rate 71 Pulse Rate [Right Pulse Oximeter] 99 Respiratory Rate 17 Blood Pressure Blood Pressure [Ri ght Upper Arm] 79/51 L Pulse Oximetry 95 100 100 Oxygen Delivery Me thod Room Air 07/17/23 18:00 07/17/23 18:02 07/17/23 18:11 Temperature Pulse Rate 73 77 Pulse Rate [Right Pulse Oximeter] Respiratory Rate Blood Pressure 115/65 119/59 L Blood Pressure [Ri ght Upper Arm] Pulse Oximetry 96 98 Oxygen Delivery Me thod 07/17/23 18:12 07/17/23 18:15 07/17/23 18:21 Temperature Pulse Rate 75 74 77 Pulse Rate [Right Pulse Oximeter] Respiratory Rate Blood Pressure 133/65 Blood Pressure [Ri ght Upper Arm] Pulse Oximetry 100 92 97 Oxygen Delivery Me thod 07/17/23 18:30 07/17/23 18:32 07/17/23 18:41 Temperature Pulse Rate 78 76 79 Pulse Rate [Right Pulse Oximeter] Respiratory Rate Blood Pressure 139/67 141/66 H Blood Pressure [Ri ght Upper Arm] Pulse Oximetry 100 78 L 96 [facility] 07/17/23 18:47 07/17/23 18:51 07/17/23 19:00 Temperature Pulse Rate 78 81 80 Pulse Rate [Right Pulse Oximeter] Respiratory Rate Blood Pressure 148/83 H Blood Pressure [Ri ght Upper Arm] Pulse Oximetry 100 100 93 Oxygen Delivery [facility] 07/17/23 19:01 07/17/23 19:15 07/17/23 19:30 Temperature Pulse Rate 81 80 79 Pulse Rate [Right Pulse Oximeter] Respiratory Rate Blood Pressure 148/79 H Blood Pressure [Ri ght Upper Arm] Pulse Oximetry 90 93 98 Oxygen Delivery [facility] 07/17/23 19:31 07/17/23 19:45 07/17/23 20:00 Temperature Pulse Rate 83 78 79 Pulse Rate [Right Pulse Oximeter] Respiratory Rate Blood Pressure 137/70 Blood Pressure [Ri ght Upper Arm] Pulse Oximetry 98 100 100 Oxygen Delivery [facility] 07/17/23 20:01 07/17/23 20:15 07/17/23 20:39 Temperature Pulse Rate 80 75 84 Pulse Rate [Right Pulse Oximeter] Respiratory Rate Blood Pressure 134/65 Blood Pressure [Ri ght Upper Arm] Pulse Oximetry 97 100 97 Oxygen Delivery [facility] 07/17/23 20:45 07/17/23 21:00 07/17/23 21:02 Temperature Pulse Rate 78 77 76 Pulse Rate [Right Pulse Oximeter] Respiratory Rate Blood Pressure 104/69 Blood Pressure [Ri ght Upper Arm] Pulse Oximetry 99 98 99 Oxygen Delivery [facility] 07/17/23 21:03 07/17/23 21:15 Temperature Pulse Rate 75 73 Pulse Rate [Right Pulse Oximeter] Respiratory Rate Blood Pressure Blood Pressure [Ri ght Upper Arm] Pulse Oximetry 99 100 Oxygen Delivery [facility] Documenting provider has reviewed patient's vital signs: yes Course Course ED Course: Patient's blood pressure continued to improve here, we gave her a total of only 1 L, she had normal laboratories tests for herself, she has a chronically low hemoglobin, and her lactate was normal. I do not think this is sepsis. I do think she needs to take some more fluids in, with her chemotherapy she just has not been eating. She does have the pleural effusion on the left which sounds like it is a chronic issue and followed by [facility] for this she also has chronic pain on the left secondary to when they tapped her, and put a catheter in there this is been going on for months according to her , and I have no acute or suggestions for them. We ruled out myocardial infarction with a couple troponins and her EKGs have been normal. I think it would be reasonable let her go home and she has admit gaping for this. There is no evidence of bleeding, her Hemoccult was negative there is no blood on my finger no black stools. And her hemoglobin has remained stable. she does have the malignancy which [facility] was following Vital Signs Vital signs: Initial Vital Signs Temperature 97.5 F L 07/17/23 16:55 Temperature Source Temporal Artery Scan 07/17/23 16:55 Pulse Rate 99 07/17/23 16:55 Pulse Rhythm Regular 07/17/23 16:55 Pulse Strength 3+ Normal 07/17/23 16:55 Respiratory Rate 17 07/17/23 16:55 Blood Pressure 79/51 L 07/17/23 16:55 Blood Pressure Mean 60 L 07/17/23 16:55 Blood Pressure Position Sitting 07/17/23 16:55 Pulse Oximetry 95 07/17/23 16:55 Oxygen Delivery Method Room Air 07/17/23 16:55 Vital Signs Temperature 97.5 F L 07/17/23 16:55 Pulse Rate 99 07/17/23 16:55 Respiratory Rate 17 07/17/23 16:55 Blood Pressure 79/51 L 07/17/23 16:55 Pulse Oximetry 95 07/17/23 16:55 Oxygen Delivery Method Room Air 07/17/23 16:55 Temperature 97.5 F L 07/17/23 16:55 Pulse Rate 73 07/17/23 21:15 Respiratory Rate 17 07/17/23 16:55 Blood Pressure 104/69 07/17/23 21:02 Pulse Oximetry 100 07/17/23 21:15 Oxygen Delivery Method Room Air 07/17/23 16:55 Medications Administered Medications: Discontinued Medications Generic Name Dose Route Start Last Admin Trade Name Freq PRN Reason Stop Dose Admin Sodium Chloride 1,000 mls @ 1,000 mls/hr 07/17/23 17:30 07/17/23 18:15 0.9 % Sodium Chloride 1000 Ml IV 07/17/23 18:29 Infused .Q1H SRAVAN Infusion MDM - Weakness MDM Narrative Medical decision making narrative: Life-threatening differential diagnosis considered include stroke, coronary artery disease, pneumonia, and heart failure. Other differential diagnosis include but are not limited to electrolyte imbalances, anemia, medication reactions, and urinary tract infection I did do a rectal exam, that is Hemoccult negative. This is reassuring. There is no stool at all, I will do some labs, and follow-up with her, and we will give her some fluids well were waiting. Medical Records Attestation: I reviewed the patient's medical records. Lab Data Attestation: I reviewed the patient's lab results. Labs: Lab Results 07/17/23 07/17/23 07/17/23 Range/Units 17:25 17:40 18:00 WBC 4.96 (4.50-11.00) K/uL RBC 3.64 L (4.00-5.20) m/uL Hgb 10.8 L (12.0-16.0) gm/dL Hct 33.9 (33.0-51.0) % MCV 93 (80-100) fL MCH 30 (26-34) pg MCHC 32 (32-36) gm/dL RDW Coeff of David 16.8 H (11.5-15.5) % Plt Count 184 (140-440) K/uL Neut % (Auto) 76.3 H (42.0-72.0) % Lymph % (Auto) 17.9 L (20-44) % [place] % (Auto) 5.2 (0.0-11.0) % Eos % (Auto) 0.0 (0.0-7.0) % Baso % (Auto) 0.4 (0.0-3.0) % Neut # (Auto) 3.80 (1.7-7.0) K/uL Lymph # (Auto) 0.90 (0.90-2.90) K/uL [place] # (Auto) 0.30 (0.00-0.90) K/UL Eos # (Auto) 0.00 (0.00-0.50) K/uL Baso # (Auto) 0.02 (0.00-0.30) K/uL Abs Immat Gran (auto) 0.01 (0.00-0.30) K/uL Imm/Tot Granulo (auto) 0.2 % Sodium 137 (135-149) mmol/L Potassium 3.4 L (3.6-5.1) mmol/L Chloride 109 (96-114) mmol/L Carbon Dioxide 24 (20-32) mmol/L Anion Gap 4 L (7-15) mEq/L BUN 42 H (7-30) mg/dL Creatinine 1.5 (0.5-1.5) mg/dL Estimated Creat Clear 23.81 Estimated GFR 35 ml/min Glucose 93 (60-115) mg/dL Lactate 1.2 (0.5-1.9) mmol/L Calcium 8.3 L (8.4-10.6) mg/dL C-Reactive Protein < 0.5 L (0.5-1.0) mg/dL Procalcitonin 0.06 (<0.50) ng/mL Urine Color Yellow (Yellow) Urine Appearance Clear (Clear) Urine pH 7.0 (5.0-8.5) Ur Specific [place] 1.020 (1.000-1.030) Urine Protein Negative (Negative) Urine Glucose (UA) Negative (Negative) Urine Ketones 1+ A (Negative) Urine Blood Negative (Negative) Urine Nitrite Negative (Negative) Urine Bilirubin Negative (Negative) Urine Urobilinogen 0.2 (0.2-1.0) Ur Leukocyte Esterase Negative (Negative) Urine RBC 0-2 (0-2) Urine WBC 0-2 (0-5) Ur Squamous Epith Cells None (None-Few) Urine Bacteria None (None) Stool Occult Blood Negative (Negative) POC Troponin I 0.01 (0.01-0.04) ng/ml 07/17/23 Range/Units 20:40 WBC (4.50-11.00) K/uL RBC (4.00-5.20) m/uL Hgb (12.0-16.0) gm/dL Hct (33.0-51.0) % MCV (80-100) fL MCH (26-34) pg MCHC (32-36) gm/dL RDW Coeff of David (11.5-15.5) % Plt Count (140-440) K/uL Neut % (Auto) (42.0-72.0) % Lymph % (Auto) (20-44) % [place] % (Auto) (0.0-11.0) % Eos % (Auto) (0.0-7.0) % Baso % (Auto) (0.0-3.0) % Neut # (Auto) (1.7-7.0) K/uL Lymph # (Auto) (0.90-2.90) K/uL [place] # (Auto) (0.00-0.90) K/UL Eos # (Auto) (0.00-0.50) K/uL Baso # (Auto) (0.00-0.30) K/uL Abs Immat Gran (auto) (0.00-0.30) K/uL Imm/Tot Granulo (auto) % Sodium (135-149) mmol/L Potassium (3.6-5.1) mmol/L Chloride (96-114) mmol/L Carbon Dioxide (20-32) mmol/L Anion Gap (7-15) mEq/L BUN (7-30) mg/dL Creatinine (0.5-1.5) mg/dL Estimated Creat Clear Estimated GFR ml/min Glucose (60-115) mg/dL Lactate (0.5-1.9) mmol/L Calcium (8.4-10.6) mg/dL C-Reactive Protein (0.5-1.0) mg/dL Procalcitonin (<0.50) ng/mL Urine Color (Yellow) Urine Appearance (Clear) Urine pH (5.0-8.5) Ur Specific [place] (1.000-1.030) Urine Protein (Negative) Urine Glucose (UA) (Negative) Urine Ketones (Negative) Urine Blood (Negative) Urine Nitrite (Negative) Urine Bilirubin (Negative) Urine Urobilinogen (0.2-1.0) Ur Leukocyte Esterase (Negative) Urine RBC (0-2) Urine WBC (0-5) Ur Squamous Epith Cells (None-Few) Urine Bacteria (None) Stool Occult Blood (Negative) POC Troponin I 0.02 (0.01-0.04) ng/ml Imaging Data Chest x-ray: Attestation: I have reviewed the pertinent imaging results. My impression: Left-sided pleural effusion Radiologist's impression: atient: JAQUI COLORADO Facility:?[facility] Patient ID:?[id number] Site Patient ID:?[id number] Site :?[id number] Study:?XRay-Chest 2 VIEW-07/17/2023 6:10:43 PM Ordering Physician:?DR. BRYSON Final Report: INDICATION: Chest pain. TECHNIQUE: Chest 2 view(s) COMPARISON: Chest radiograph dated 06/07/2023. FINDINGS: Cardiomediastinal silhouette is partially obscured, no significant cardiomegaly. Stable pulmonary vasculature. Surgical clips at the left superior hilum noted. Persistent opacification of the left lower lung, with streaky opacities. Slight interval decrease in right interstitial opacities. No pneumothorax. Extensive multilevel degenerative changes of the visualized spine. IMPRESSION: 1. Persistent opacification of the left lower lung, increased since prior study, may reflect worsening pleural effusion. Underlying mass/pneumonia not excluded. 2. Streaky opacities in the left mid lung, may reflect atelectasis. 3. Slight interval decrease in right interstitial opacities since prior study. Dictated by Best Mendez MD @ 07/17/2023 7:15:01 PM ECG Data Attestation: I personally reviewed and interpreted this ECG as follows: ECG interpretation date: 07/17/23 Prior ECG tracings: available for review Interpretation: EKGs done x2, showed normal sinus rhythm, with a ventricular rate of 76, no acute ST wave changes, assessment normal EKGs Discharge Plan Discharge Clinical Impression: Black stool, History of lung cancer, Pleural effusion on left, Chest pain Patient Disposition: Home w/ Parent or Adult Condition: Stable Instructions: Pleural Effusion (DC), Chest Wall Pain (ED) Additional Instructions: I recommend that she call [facility], and tell him that you had a pleural effusion on the left, and the ER doctor recommend you follow-up for that. No evidence of anything severe going on, your not bleeding, and your bowels seem to be okay. I am not sure what is causing the chronic chest pain I believe that is likely scar tissue from when they put in that catheter. Unfortunately I do not have any good suggestions for you for this other than some Tylenol. Activity Level: Light activity Prescriptions: No Action Paxlovid 150-100 mg tablets,dose pack See Rx Instructions .ROUTE .COMPLEX Qty: 20 0RF Rx Instructions: orally per package directions sertraline 100 mg tablet 100 mg PO DAILY levothyroxine 50 mcg tablet 50 mcg PO DAILY losartan 25 mg tablet 25 mg PO DAILY gabapentin 100 mg capsule 100 mg PO QPM Eliquis 2.5 mg tablet 2.5 mg PO BID memantine 10 mg tablet Patient Comments: PLEASE SEE ATTACHED FOR DETAILED DIRECTIONS Follow Up/Referrals: ANGELLA GUTIERREZ [Primary Care Provider] - Stand Alone Forms: [facility] Info Instructions
[2023-07-17 20:12] LABS: Troponin, Point-of-Care* 0.01 ng/ml (0.01-0.04)
[2023-07-17 20:56] LABS: Appearance Urine Clear (Clear); Bilirubin Urine Negative (Negative); Blood Urine Negative (Negative); Color Urine Yellow (Yellow); Glucose Urine Negative (Negative); Ketones Urine 1+ (Negative); Leukocyte Esterase Urine Negative (Negative); Nitrite Urine Negative (Negative); Protein Urine Negative (Negative); Urobilinogen Urine 0.2 (0.2-1.0)
[2023-07-17 20:59] LABS: Troponin, Point-of-Care* 0.02 ng/ml (0.01-0.04)
[2023-07-17 21:04] LABS: RBC Urine 0-2 (0-2); WBC Urine 0-2 (0-5)
== END 2023-07-17 21:36 | disposition home or self-care (01) ==
PROVIDERS: Emergency Provider Family Medicine; PCP Family Medicine
DX: R07.9 Chest pain, unspecified (principal); J90 Pleural effusion, not elsewhere classified; R19.5 Other fecal abnormalities
CPT/HCPCS: 36415; 71046; 80048; 81001; 82270; 83605; 84145; 84484; 85025; 86140; 87040; 93005; 94761; 99284; 99285; J7030